=== PATIENT | male | born 1975 | race Caucasian/White ===

== ENCOUNTER 2019-03-10 08:00 | Inpatient (IN) | payer OTHER ==
[~2019-03-10 08:00] MED LIST: NEURONTIN300 MG PO; TRAZODONE HCL100 MG PO
[2019-03-11] MEDS ORDERED: SYNTHROID137 MCG PO ×2 (11:19→11:20)
[2019-03-11] MEDS ORDERED: PERCOCET 5-3251 EACH PO (11:20)
== END 2019-03-11 13:08 | disposition home or self-care (01) | DRG 627 ==
LOC: CIR.AMB 08:00 → O/R 12:59 → SURG 13:33
PROVIDERS: ADMIT Surgery
PROC: 07T10ZZ Resection of Right Neck Lymphatic, Open Approach (ICD-10-PCS; 2019-03-10)
PROC: 0GTH0ZZ Resection of Right Thyroid Gland Lobe, Open Approach (ICD-10-PCS; 2019-03-10)
PROC: 0GTJ0ZZ Resection of Thyroid Gland Isthmus, Open Approach (ICD-10-PCS; principal; 2019-03-10 11:00)
DX: C73 Malignant neoplasm of thyroid gland (principal)